=== PATIENT | male | born 1975 | race Two or more races ===

== ENCOUNTER → 2016-09-21 | Outpatient (CLI) | payer OTHER ==
--- NOTE | 2016-09-22 00:11 | ECWPNPC ---
PATIENT NAME: AMOS ALONZO : 1975 GENDER: MALE VISIT DATE: 09/21/2016 DISCHARGE DATE: 09/21/16 1208 VISIT LOCKED DATE TIME: PHYSICIAN: KYLE NAGEL RESOURCE: KYLE NAGEL REASON FOR APPOINTMENT 1. POST PROCEDURE- NECK HISTORY OF PRESENT ILLNESS HISTORY OF PRESENT ILLNESS: HERE FOR POST PROCEDURE F/U.HAD TPI TO RIGHT NECK 08-18-16.REPORTS 3 WEEKS OF PAIN REDUCTION THEN PAIN HAS GRADUALLY RETURNED THIS WEEK.CONTINUES WITH RIGHT ARM PAIN AND NUMBNESS THAT IS UNCHANGED WITH TPI.SPECIFIC RIGHT RING AND PINKY FINGER NUMBNESS IS DESCRIBED.RATING PAIN VAS 8/10. PAIN THE PATIENT DESCRIBES THE PAIN... FALL RISK SCREENING: SCREENING :NO FALLS IN THE PAST YEAR GENERAL: HERE FOR POST PROC. F/U.HAD TPI 07-14-16. REPORTS GREATER THAN 2WKS OF SIGNIFICANT IMPROVEMENT THEN AFTER PAINTING 10 DAYS AGO PAIN HAS BECOME AGGREVATED. FRANCINE X2 LAST ONE 06-17-16.REPORTED >75% IMPROVEMENT IN PAIN FOR SEVERAL WEEKS.REPORTS IMPROVEMENT IN RIGHT ARM SYMPTOMS OF PAIN AND PARATHESIAS SINCE FRANCINE.TODAY EXPERIENCING RIGHT NECK STIFFNESS AND PAIN.RATING PAIN VAS 9/10 RIGHT NECK. CURRENT MEDICATIONS TAKING RANITIDINE HCL 150 MG CAPSULE 1 CAPSULE ORALLY ONCE DAILY TAKING HYDROXYZINE HCL 25 MG TABLET 1-2 TABLETS NEEDED ORALLY AT BEDTIME NEEDED TAKING TRAZODONE HCL 50 MG TABLET 1 TABLET AT BEDTIME NEEDED ORALLY ONCE A DAY TAKING METHOCARBAMOL 500 MG TABLET 1 TABLET ORALLY THREE TIMES DAILY NEEDED TAKING FLUTICASONE FUROATE 27.5 MCG/SPRAY SUSPENSION 1 PUFF IN EACH NOSTRIL NASALLY TWICE A DAY TAKING PANTOPRAZOLE SODIUM 40 MG TABLET DELAYED RELEASE 1 TABLET ORALLY ONCE A DAY TAKING PRAZOSIN HCL 1 MG CAPSULE 1 CAPSULE AT BEDTIME ORALLY ONCE A DAY TAKING HYDROCODONE-ACETAMINOPHEN 5-325 MG TABLET 1 TABLET NEEDED ORALLY EVERY 8 HOURS TAKING CYCLOBENZAPRINE HCL 10 MG TABLET 1 TABLET ORALLY THREE TIMES A DAY NEEDED FOR SPASMS AND PAIN MDD3 NOT-TAKING ALLERGY RELIEF 180 MG TABLET 1 TABLET NEEDED ORALLY ONCE A DAY NOT-TAKING PROBIOTIC CAPSULE 1 TABLET ORALLY ONCE DAILY NOT-TAKING VALIUM 10 MG TABLET 1 ORALLY 1 TAB 1HR PRE PROC. MDD1, NOTES: 1620 TODAY NOT-TAKING VALIUM 10 MG TABLET 1 TABLET ORALLY IN THE MORNING BEFORE PROCEDURE NOT-TAKING TIZANIDINE HCL 4 MG TABLET 1 TABLET NEEDED ORALLY BEFORE BEDTIME NEEDED FOR SPASMS AND PAIN MDD1 NOT-TAKING SUCRALFATE 1 GM TABLET 1 TABLET ON AN EMPTY STOMACH ORALLY ONCE DAILY MEDICATION LIST REVIEWED AND RECONCILED WITH THE PATIENT PAST MEDICAL HISTORY ANEMIA GERD STOMACH ULCERS WITH H PYLORI NECK AND LOW BACK PAIN ALLERGIES PENICILLIAN: SWELLING ORANGES: SWELLING,RASH BANDAIDS AND ADHESIVES: REDDNESS AND SWELLING LATEX GLOVES: REDDNESS AND SWELLING: ALLERGY SOCIAL HISTORY TOBACCO USE ARE YOU A:CURRENT SMOKER LEARNING BARRIERS / SPECIAL NEEDS ORIENTED TO PLAN OF CARE: PATIENT, PAIN MANAGEMENT PATIENT, ORIENTED TO PLAN OF CARE: PATIENT, PAIN MANAGEMENT PATIENT. NEW PATIENT PAIN DIARY TODAY'S VISITNOTES FROM 0-10, WHAT LEVEL IS YOUR PAIN TODAY?0 PAIN CLINIC PFS, CLERGY, PUBLIC HEALTH REFERRALS PFS REFERRAL NEEDED?NO CLERGY REFERRAL NEEDED?NO PUBLIC HEALTH REFERRAL NEEDED?NO WAS THE PROVIDER NOTIFIED OF ANY PERTINENT INFO?NO PFS REFERRAL NEEDED?NO CLERGY REFERRAL NEEDED?NO PUBLIC HEALTH REFERRAL NEEDED?NO WAS THE PROVIDER NOTIFIED OF ANY PERTINENT INFO?NO REVIEW OF SYSTEMS CONSTITUTIONAL: ANY CHANGE IN YOUR MEDICAL CONDITION? NO . CHILLS NO . FEVER NO . INFECTION: DO YOU HAVE NEW INFECTIONS? NO . DO YOU HAVE HISTORY OF MRSA? NO . MUSCULOSKELETAL: ANY NEW PATTERNS OF PAIN OR NUMBNESS? NO . GASTROENTEROLOGY: ANY NEW CHANGE IN BOWEL CONTROL? NO . GENITOURINARY: ANY NEW CHANGE IN BLADDER CONTROL? NO . IS THERE A CHANCE YOU COULD BE ? NO . HEMATOLOGY/LYMPH: DO YOU TAKE ANY BLOOD THINNERS? (FOR EXAMPLE- COUMADIN, PLAVIX, AGGRENOX, PLATEL, PRADAXA, OR XARELTO) NO . WHEN WAS YOUR LAST DOSE? DATE: TIME: . NEUROLOGY: HAVE YOU FALLEN IN THE PAST 6 MONTHS? NO . ANY NEW EXTREMITY NUMBNESS OR WEAKNESS? NO . CARDIOLOGY: DO YOU HAVE A PACEMAKER OR DEFIBRILLATOR? NO . RESPIRATORY: HAVE YOU BEEN SICK IN THE PAST WEEK? NO . FEVER NO . FLU LIKE SYMPTOMS? NO . COUGH NO . INTEGUMENTARY: DO YOU HAVE ANY RASHES OR OPEN SORES? NO . ALLERGIC/IMMUNO: ARE YOU ALLERGIC TO SHELLFISH OR IV DYE? NO . ANY NEW ALLERGIES? NO . PSYCHIATRIC: DO YOU HAVE THOUGHTS OF HURTING YOURSELF OR SOMEONE ELSE? NO . ARE YOU ABUSED, NEGLECTED, OR IN AN UNSAFE ENVIRONMENT? NO . ENDOCRINOLOGY: ARE YOU DIABETIC? NO . OTHER: DO YOU NEED ANY PRESCRIPTIONS? NO . IF YES, PLEASE LIST: ____ . ANY NEW PROBLEMS WITH YOUR MEDICATIONS? NO . WHEN DID YOU LAST EAT? ____ . WHEN DID YOU LAST DRINK? ____ . WHAT DID YOU LAST DRINK? ____ . NAME OF PERSON DRIVING YOU HOME? ____ . DO YOU HAVE ANY OTHER QUESTIONS OR CONCERNS NO . REVIEWED BY: PROVIDER: KYLE MCGUIRE . VITAL SIGNS WT 156 LBS, HT 67 IN, BMI 24.43 INDEX, BP 152/81 MM HG, HR 94 /MIN, RR 16 /MIN, TEMP 97.9 F, OXYGEN SAT % 98%, REVIEWED BY: CS DONE AT 1130. EXAMINATION CERVICAL SPINE/NECK: RANGE OF MOTION OF NECK:FULL W REPORTS OF PAIN AND STIFFNESS W LATERAL ROTATION.. SENSATIONS:NORMAL BILATERALLY. MOTOR STRENGTH:4/5 RIGHT ARM/5/5 LEFT ARM. VERTEBRAL SPINE TENDERNESS:TENDERNESS IN PARASPINAL MUSCLES-RIGHT SIDE ONLY. MYOFASCIAL TRIGGER POINTS:POSITIVE OVER RIGHT TRAPEZIUS. 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 REFERRAL TO:[facility] REASON:RIGHT ARM AND HAND RADICULAR SYMPTOMS-PLEASE DO NCS RIGHT PROCEDURE CODES FA211 ESTABILISHED PATIENT [facility] FACILITY CHARGE FOLLOW UP 2WKS POST PROCEDURE (REASON: FRANCINE PLEASE CHECK WHAT INSURANCE WILL COVER IN REGARDS TO EPIDURALS.IS THERE A 5 YEAR LIMIT.PLEASE S) ELECTRONICALLY SIGNED BY MAYNOR MILLER ON 09/21/2016 AT 01:15 PM EST DISCLAIMER : THIS IS A VISIT SUMMARY EXTRACTED FROM THE [employer] CHART. IT IS NOT A COPY OF THE [employer] PROGRESS NOTE. MTDD
== END ==
LOC: M PAIN 11:20
PROVIDERS: ATTEND Nurse Practitioner Family
DX: Z09 Encounter for follow-up examination after completed treatment for conditions other than malignant neoplasm (principal); G89.29 Other chronic pain; M50.120 Mid-cervical disc disorder, unspecified level; M79.1 Myalgia; J45.909 Unspecified asthma, uncomplicated; K21.9 Gastro-esophageal reflux disease without esophagitis; Z88.0 Allergy status to penicillin; Z91.018 Allergy to other foods; L23.1 Allergic contact dermatitis due to adhesives; Z91.040 Latex allergy status; Z79.891 Long term (current) use of opiate analgesic; Z79.899 Other long term (current) drug therapy; Z87.19 Personal history of other diseases of the digestive system

== ENCOUNTER → 2016-10-11 | Outpatient (CLI) | payer OTHER ==
[~2016-10-11] MED LIST: ISOVUE-M 300 61% 15ML VIAL (Q9967) As Ordered ONE; LIDOCAINE 1% SDV INJ 30 ML VIAL As Ordered ONE; diazePAM 5 MG TAB As Ordered ONE; methylPREDNISolone SUSP 40 MG/ML (DEPO-medrol) VIAL (J1030) As Ordered ONE; oxyCODONE 5MG TAB As Ordered ONE
--- NOTE | 2016-10-11 17:19 | REP ---
Cervical spine series: Three views: HISTORY: Cervical epidural steroid injection for pain. 18 seconds of fluoroscopy time is reported. Findings: A sequence of three fluoroscopically obtained procedural spot radiographs of the cervicothoracic junction document needle position and contrast injection associated with cervical epidural injection procedure. Signed by Ronald Crisostomo MD 10/11/2016 05:37 P
--- NOTE | 2016-10-17 00:02 | ECWPNPC ---
PATIENT NAME: AMOS ALONZO : 1975 GENDER: FEMALE VISIT DATE: 10/11/2016 DISCHARGE DATE: 10/11/16 1421 VISIT LOCKED DATE TIME: PHYSICIAN: TAYLOR COTTON RESOURCE: TAYLOR COTTON REASON FOR APPOINTMENT 1. CERVICAL EPIDURAL HISTORY OF PRESENT ILLNESS HISTORY OF PRESENT ILLNESS: PAIN THE PATIENT DESCRIBES THE PAIN... FALL RISK SCREENING: SCREENING :NO FALLS IN THE PAST YEAR CURRENT MEDICATIONS TAKING RANITIDINE HCL 150 MG CAPSULE 1 CAPSULE ORALLY ONCE DAILY, NOTES: 10/10/16 0800 TAKING HYDROXYZINE HCL 25 MG TABLET 1-2 TABLETS NEEDED ORALLY AT BEDTIME NEEDED, NOTES: 10/10/162029 TAKING TRAZODONE HCL 50 MG TABLET 1 TABLET AT BEDTIME NEEDED ORALLY ONCE A DAY, NOTES: 10/10/162029 TAKING METHOCARBAMOL 500 MG TABLET 1 TABLET ORALLY THREE TIMES DAILY NEEDED, NOTES: 10/10/16 173 TAKING FLUTICASONE FUROATE 27.5 MCG/SPRAY SUSPENSION 1 SPRAY IN EACH NOSTRIL NASALLY TWICE A DAY, NOTES: 10/10/16 0800 TAKING PANTOPRAZOLE SODIUM 40 MG TABLET DELAYED RELEASE 1 TABLET ORALLY ONCE A DAY, NOTES: 10/10/16 08 TAKING PRAZOSIN HCL 1 MG CAPSULE 1 CAPSULE AT BEDTIME ORALLY ONCE A DAY, NOTES: 10/10/162029 TAKING HYDROCODONE-ACETAMINOPHEN 5-325 MG TABLET 1 TABLET NEEDED ORALLY EVERY 8 HOURS, NOTES: 10/10/16 1500 TAKING CYCLOBENZAPRINE HCL 10 MG TABLET 1 TABLET ORALLY THREE TIMES A DAY NEEDED FOR SPASMS AND PAIN MDD3, NOTES: NONE RECENTLY NOT-TAKING ALLERGY RELIEF 180 MG TABLET 1 TABLET NEEDED ORALLY ONCE A DAY NOT-TAKING PROBIOTIC CAPSULE 1 TABLET ORALLY ONCE DAILY NOT-TAKING VALIUM 10 MG TABLET 1 ORALLY 1 TAB 1HR PRE PROC. MDD1, NOTES: 1620 TODAY NOT-TAKING VALIUM 10 MG TABLET 1 TABLET ORALLY IN THE MORNING BEFORE PROCEDURE NOT-TAKING TIZANIDINE HCL 4 MG TABLET 1 TABLET NEEDED ORALLY BEFORE BEDTIME NEEDED FOR SPASMS AND PAIN MDD1 NOT-TAKING SUCRALFATE 1 GM TABLET 1 TABLET ON AN EMPTY STOMACH ORALLY ONCE DAILY MEDICATION LIST REVIEWED AND RECONCILED WITH THE PATIENT PAST MEDICAL HISTORY ANEMIA GERD STOMACH ULCERS WITH H PYLORI NECK AND LOW BACK PAIN ALLERGIES PENICILLIAN: SWELLING: ALLERGY ORANGES: SWELLING,RASH: ALLERGY BANDAIDS AND ADHESIVES: REDDNESS AND SWELLING: ALLERGY LATEX GLOVES: REDDNESS AND SWELLING: ALLERGY TEGADERM: REDNESS, SWELLING: ALLERGY SURGICAL HISTORY RIGHT KNEE 1985 TUBAL LIGATION 2002 D&C 1996 MOLES REMOVED 2016 SOCIAL HISTORY GENERAL: TOBACCO USE ARE YOU A:CURRENT SMOKER LEARNING BARRIERS / SPECIAL NEEDS ORIENTED TO PLAN OF CARE: PATIENT, PAIN MANAGEMENT PATIENT, ORIENTED TO PLAN OF CARE: PATIENT, PAIN MANAGEMENT PATIENT. NEW PATIENT PAIN DIARY TODAY'S VISITNOTES FROM 0-10, WHAT LEVEL IS YOUR PAIN TODAY?0 PAIN CLINIC PFS, CLERGY, PUBLIC HEALTH REFERRALS PFS REFERRAL NEEDED?NO CLERGY REFERRAL NEEDED?NO PUBLIC HEALTH REFERRAL NEEDED?NO WAS THE PROVIDER NOTIFIED OF ANY PERTINENT INFO?NO PFS REFERRAL NEEDED?NO CLERGY REFERRAL NEEDED?NO PUBLIC HEALTH REFERRAL NEEDED?NO WAS THE PROVIDER NOTIFIED OF ANY PERTINENT INFO?NO HOSPITALIZATION/MAJOR DIAGNOSTIC PROCEDURE CHILD 04/28/1992 CHILD 03/13/1997 CHILD 04/04/1999 CHILD 06/10/2002 REVIEW OF SYSTEMS CONSTITUTIONAL: ANY CHANGE IN YOUR MEDICAL CONDITION? NO . CHILLS NO . FEVER NO . INFECTION: DO YOU HAVE NEW INFECTIONS? NO . DO YOU HAVE HISTORY OF MRSA? NO . MUSCULOSKELETAL: ANY NEW PATTERNS OF PAIN OR NUMBNESS? NO . GASTROENTEROLOGY: ANY NEW CHANGE IN BOWEL CONTROL? NO . GENITOURINARY: ANY NEW CHANGE IN BLADDER CONTROL? NO . IS THERE A CHANCE YOU COULD BE ? NO . HEMATOLOGY/LYMPH: DO YOU TAKE ANY BLOOD THINNERS? (FOR EXAMPLE- COUMADIN, PLAVIX, AGGRENOX, PLATEL, PRADAXA, OR XARELTO) NO . WHEN WAS YOUR LAST DOSE? DATE: TIME: . NEUROLOGY: HAVE YOU FALLEN IN THE PAST 6 MONTHS? NO . ANY NEW EXTREMITY NUMBNESS OR WEAKNESS? NO . CARDIOLOGY: DO YOU HAVE A PACEMAKER OR DEFIBRILLATOR? NO . RESPIRATORY: HAVE YOU BEEN SICK IN THE PAST WEEK? NO . FEVER NO . FLU LIKE SYMPTOMS? NO . COUGH NO . INTEGUMENTARY: DO YOU HAVE ANY RASHES OR OPEN SORES? NO . ALLERGIC/IMMUNO: ARE YOU ALLERGIC TO SHELLFISH OR IV DYE? NO . ANY NEW ALLERGIES? NO . PSYCHIATRIC: DO YOU HAVE THOUGHTS OF HURTING YOURSELF OR SOMEONE ELSE? NO . ARE YOU ABUSED, NEGLECTED, OR IN AN UNSAFE ENVIRONMENT? NO . ENDOCRINOLOGY: ARE YOU DIABETIC? NO . OTHER: DO YOU NEED ANY PRESCRIPTIONS? NO . IF YES, PLEASE LIST: ____ . ANY NEW PROBLEMS WITH YOUR MEDICATIONS? NO . WHEN DID YOU LAST EAT? 1829 . WHEN DID YOU LAST DRINK? 529 . WHAT DID YOU LAST DRINK? WATER . NAME OF PERSON DRIVING YOU HOME? MORRO BURNHAM . DO YOU HAVE ANY OTHER QUESTIONS OR CONCERNS NO . REVIEWED BY: PROVIDER: . VITAL SIGNS WT 152 LBS, HT 67 IN, BMI 23.80 INDEX, BP 114/67 MM HG, HR 74 /MIN, RR 16 /MIN, TEMP 97.0 F, OXYGEN SAT % 97%, NA INITIALS SC 10:55, REVIEWED BY: LS. ASSESSMENTS CERVICAL DISC DISORDER WITH RADICULOPATHY, CERVICOTHORACIC REGION - M50.13 (PRIMARY) PROCEDURES PN CERVICAL EPIDURAL PRE PROCEDURE DIAGNOSIS CERVICOTHORACIC RADICULOPATHY CERVICOTHORACIC SPINAL STENOSIS , CERVICOTHORACIC DISC DISORDER WITH RADICULOPATHY POST PROCEDURE DIAGNOSIS CERVICOTHORACIC RADICULOPATHY CERVICOTHORACIC SPINAL STENOSIS , CERVICOTHORACIC DISC DISORDER WITH RADICULOPATHY PROCEDURE C7-T1 EPIDURAL STEROID INJECTION UNDER FLUOROSCOPIC GUIDANCE SURGEON DR. TAYLOR COTTON HELICOPTER PILOT NONE ANESTHESIA LOCAL PRE PROCEDURE NOTE THE PATIENT HAS A HISTORY OF CHRONIC CERVICAL PAIN. I EVALUATE THE PATIENT AND REVIEWED THE CHART. I WENT OVER THE RISKS, ALTERNATIVES, AND BENEFITS ASSOCIATED WITH THIS PROCEDURE. THE PATIENT WOULD LIKE TO PROCEED AND GIVE CONSENT TO PERFORMED THE PROCEDURE. THE PATIENT DENIES UNEXPLAINABLE WEIGHT LOSS, FEVER, CHILLS, OR NEW CHANGES IN URINARY OR BOWEL CONTROL DESCRIPTION OF PROCEDURE THE PATIENT WAS BROUGHT TO THE PROCEDURE ROOM AND PLACED IN THE PRONE POSITION. THE CERVICOTHORACIC AREA WAS CLEANED WITH BETADINE SOLUTION AND DRAPED ASEPTICALLY. THE PROCEDURE WAS DONE UNDER STERILE CONDITIONS. I CHECKED LATERALITY AND THE LEVEL WHERE THE PROCEDURE WAS GOING TO BE PERFORMED WITH THE PATIENT AND THE SUPPORTING STAFF AT THE MOMENT OF THE TIME OUT IN THE PROCEDURE ROOM. UNDER FLUOROSCOPIC GUIDANCE, THE TARGET WAS SELECTED AT THE INTERLAMINAR LEVEL OF C7-T1. LIDOCAINE WAS USED TO NUMB THE SKIN AND THE SUBCUTANEOUS TISSUE BELOW IT. EPIDURAL TUOHY NEEDLE 17-GAUGE WAS ADVANCED UNDER FLUOROSCOPIC GUIDANCE AND FOLLOWING PATIENT FEEDBACK UNTIL THE EPIDURAL SPACE WAS REACHED 7 CM DEEP INTO THE SKIN BY THE LOSS OF RESISTANCE TECHNIQUE. ISOVUE M DYE 30%, 0.25 ML, WAS INJECTED SHOWING ADEQUATE SPREAD OF THE DYE. THEN, A SOLUTION OF 3 ML OF NORMAL SALINE WITH DEPO-MEDROL 60 MG WAS INJECTED SLOWLY FOLLOWING PATIENT FEEDBACK. THERE WAS NO EVIDENCE OF BLOOD, PARESTHESIA OR CEREBROSPINAL FLUID DURING THE PROCEDURE. THE PATIENT WAS SENT TO THE RECOVERY ROOM. THE PATIENT WAS MOVING THE EXTREMITIES AND DOING WELL. THERE WAS NO COMPLICATION DURING THE PROCEDURE. FLUOROSCOPY TIME WAS 18 SECONDS POST PROCEDURE NOTE THE PATIENT WILL BE SEEN IN A FOLLOW UP IN THE NEXT FEW WEEKS. INSTRUCTIONS WERE GIVEN, QUESTIONS WERE ANSWERED, AND THE PATIENT EXPRESSED UNDERSTANDING AND AGREES WITH THE PLAN. INSTRUCTIONS WERE GIVEN, QUESTIONS WERE ANSWERED, PATIENT REPORTS UNDERSTANDING AND AGREES WITH THE PLAN. I, WU CÁRDENAS, DOCUMENTED THE ABOVE INFORMATION ACTING A SCRIBE FOR DR. COTTON. I HAVE REVIEWED THE ABOVE DOCUMENT, WRITTEN BY WU CÁRDNEAS SCRIBE AND I VERIFY THAT IT IS ACCURATE. DIAGNOSTIC IMAGING [facility] FLUORO GUIDE SPINE INJECTION (PAIN)[id number] PROCEDURE CODES 02611 CERVICAL/THORACIC W/ IMAGING 6045F RADXPS IN END [id number] PXD FOLLOW UP 3 WEEKS ELECTRONICALLY SIGNED BY TAYLOR COTTON MD ON 10/16/2016 AT 07:49 PM EST DISCLAIMER : THIS IS A VISIT SUMMARY EXTRACTED FROM THE [employer] CHART. IT IS NOT A COPY OF THE [employer] PROGRESS NOTE. MTDD
== END ==
LOC: M PAIN 10:50 → EDSEX 10:50
PROVIDERS: ATTEND Anesthesiology
DX: G89.29 Other chronic pain (principal); M50.13 Cervical disc disorder with radiculopathy, cervicothoracic region; M54.5 Low back pain; Z79.891 Long term (current) use of opiate analgesic; Z79.899 Other long term (current) drug therapy; Z88.0 Allergy status to penicillin; Z91.018 Allergy to other foods; Z91.040 Latex allergy status; Z91.09 Other allergy status, other than to drugs and biological substances